=== PATIENT | male | born 2000 | race Caucasian/White ===

== ENCOUNTER 2024-02-13 10:17 | Emergency (ER) | payer MEDICAID, SELFPAY ==
--- NOTE | ~2024-02-13 | XR_ITS ---
EXAMINATION: XR HAND 3 OR MORE VIEWS RIGHT CLINICAL INFORMATION: Injury COMPARISON: None available at the time of this dictation. TECHNIQUE: Frontal lateral oblique views of the hand were obtained. 3 views FINDINGS: Mildly displaced boxer fracture of the neck of the fifth metacarpal. The fracture does not involve articular surface, anterior angulation of the fracture site. No other fractures. XR/XR hand RT min 3V IMPRESSION: Mildly displaced angulated boxer fracture of the neck of the fifth metacarpal. Electronically signed by: Israel Becker MD 02/13/2024 12:20 PM [facility]
[2024-02-13 10:22] VITALS: BP 140/84; PULSE 99; RESP 18; TEMP 36.3; O2SAT 97; BMI 20.4
--- NOTE | 2024-02-13 10:42 | ED.EXTPRO ---
HPI - Extremity Problem General Chief complaint: Extremity Injury, Upper Stated complaint: hand inj Time Seen by Provider: 02/13/24 10:30 Source: patient Mode of arrival: ambulatory Limitations: no limitations History of Present Illness ED Provider: Dejuan Carrero PA-C HPI Narrative: 23-year-old male presents to ED for right hand pain. Patient has slipped on ice and fell onto his right hand/fist. Patient denies hitting head or loss of consciousness. Denies any other complaints. Patient denies any chest pain, shortness of breath, abdominal pain, dizziness, nausea, vomiting, any other complaints. Related Data Previous Rx's ?Medication ?Instructions ?Recorded naproxen 500 mg tablet 500 mg PO BID PRN pain 7 days #14 02/13/24 tabs Allergies Allergy/AdvReac Type Severity Reaction Status Date / Time No Known Allergies Allergy Verified 02/13/24 10:24 Review of Systems Review of Systems: Right hand pain Yes all other systems are reviewed and are negative PMFSH Social History Social History Advance Directives: No Advance Directives Information Provided: Yes Physical Exam Vital Signs: Vital Signs: Last Vital Signs Temp 97.3 F 02/13/24 10:22 Pulse 99 02/13/24 10:22 Resp 18 02/13/24 10:22 BP 140/84 H 02/13/24 10:22 Pulse Ox 97 02/13/24 10:22 O2 Del Method Room Air 02/13/24 10:22 BMI result Body Mass Index 20.4 Const: General: cooperative, healthy appearing, comfortable, no acute distress, well developed, alert, awake and Physically active Orientation/consciousness: patient oriented x3 HEENT: Head: Yes normal to inspection, Yes No palpable skull fracture present, Yes normocephalic and Yes atraumatic Ears: hearing grossly normal bilaterally, external ears normal, TM's normal bilaterally, TM normal on the right, TM normal on the left, EAC's normal, mastoids normal and no periauricular adenopathy Throat: Yes posterior oropharynx normal, Yes tonsils normal and Yes uvula midline Eyes: General: appearance normal, both eyes and all related structures Neck: Neck: Yes normal visual inspection, Yes full ROM, Yes no lymphadenopathy, Yes no meningeal signs, Yes trachea midline, Yes supple, No anterior neck swelling and No tender Chest: Chest palpation & inspection: normal inspection of the chest and normal palpation of entire chest wall Resp: Effort & Inspection: normal respiratory effort and able to speak in complete sentences Auscultation: clear to auscultation bilaterally Cardio: Jugular venous distension: no JVD Heart sounds: S1 normal heart sound present and S2 normal heart sound present GI: Inspection: Yes normal to inspection Palpation (GI): Soft to palpation, not firm, nontender, no guarding and not rigid : General: Yes no CVA tenderness Back/Spine/Pelvis: Back: no CVA tenderness and No back tenderness Skin: General skin exam: no rashes or lesions noted, elasticity normal and turgor normal Neuro: General: patient oriented x3, gait normal, tone normal, moves all extremities, Normal light touch and pain sensation, no meningeal signs, no focal motor deficits, CN's II-XI intact bilaterally and normal sensation to monofilament Extrem: General: Yes normal to inspection, Yes full ROM and Yes capillary refill normal Hand/finger images: 1. Positive for tenderness on palpation with ecchymosis. Range of motion limited due to pain but intact. Rest of extremity normal. Motor/neuro/vascular exam intact. No erythema hotness or coldness Psych: Appearance: grossly normal, well kempt and not disheveled Medical Decision Making Medical Decision Making MDM Narrative: 23-year-old male presents to ED for right hand pain after slipping and falling onto right hand last night. Patient denies any head trauma. Upper extremity x-ray ordered. 12:26pm: X-ray shows boxer fracture. Patient placed in ulnar gutter splint. Patient informed to follow up with orthopedic surgeon. Patient explained worrisome signs and informed return to the ED immediately. Neuromotor vascular exam intact after splint patient. Not suspecting compartment syndrome, DVT, cellulitis, osteomyelitis, necrotizing fasciitis, or arterial occlusion. Differential Diagnosis Differential Diagnoses: The differential diagnosis associated with the presentation includes (Fracture, dislocate) Admission/Observation Consideration of admission/observation: Escalation of care including admission/observation considered Independent Interpretation I performed an independent interpretation of an: Plain X-Ray Radiology Impression Discussion of test interpretation with radiology: I have reviewed the radiologist's reading. Independent Historian Clinical information obtained from an independent historian. History obtained from or confirmed by: Other (Patient) External Record Review External record reviewed: Other (Prior visits) Discharge Plan Discharge Clinical Impression: Boxer's fracture Patient Disposition: Home, Self-Care Instructions: Hand Fracture (ED), Boxer Fracture (ED) Additional Instructions: You have a hand fracture. You will need follow-up with orthopedic surgeon. Return to the ED immediately for any bluish black discoloration, severe pain, skin feel tight, redness, chest pain, shortness of breath, numbness/tingling, fingers feel hot/cold, or any other concerning symptoms. FINDINGS: Mildly displaced boxer fracture of the neck of the fifth metacarpal. The fracture does not involve articular surface, anterior angulation of the fracture site. No other fractures. XR/XR hand RT min 3V IMPRESSION: Mildly displaced angulated boxer fracture of the neck of the fifth metacarpal. Electronically signed by: Israel Becker MD 02/13/2024 12:20 PM [facility] Prescriptions: New naproxen 500 mg tablet 500 mg PO BID PRN (Reason: pain) 7 Days Qty: 14 0RF Referrals: [facility] [place] Orthopedic Surgeons [Provider Group] (Positive for right hand fracture) Stand Alone Forms: Work/School Release Print Language: Guinean
--- NOTE | 2024-02-13 11:57 | MHC.EDTECH ---
this tech assisted DELLA harris with splinting pt, pt tolerated well, awaiting dc
[2024-02-13 12:51] VITALS: BP 140/84; PULSE 99; RESP 18; TEMP 36.3; O2SAT 97
== END 2024-02-13 12:57 | disposition home or self-care (01) ==
PROVIDERS: Emergency Provider Emergency Medicine Emergency Medical Services
DX: S62.91XA Unspecified fracture of right hand, initial encounter for closed fracture (principal); M79.641 Pain in right hand; W00.0XXA Fall on same level due to ice and snow, initial encounter; Y93.89 Activity, other specified; Y92.89 Other specified places as the place of occurrence of the external cause; Y99.8 Other external cause status
CPT/HCPCS: 73130; 99283

== ENCOUNTER 2024-02-15 09:34 | Outpatient (REF) | payer MEDICAID, SELFPAY ==
--- NOTE | ~2024-02-15 | XR_ITS ---
EXAMINATION: XR HAND RIGHT CLINICAL INFORMATION: Pain in right hand M79.641. COMPARISON: XR Right hand 02/13/2024 TECHNIQUE: PA, lateral, and oblique views of the right hand. FINDINGS: Redemonstrated is a fracture of the fifth metacarpal neck. Similar position and alignment. Mild callus formation. Mild soft tissue swelling. No new acute fracture seen. Bony alignment is anatomic. Joint spaces are maintained. XR/XR hand RT min 3V IMPRESSION: Healing changes of the fifth metacarpal fracture. Study is assigned/presented to me for interpretation on Mar 23, 2024 Electronically signed by: Barak Mittal MD 03/23/2024 09:16 AM [facility]
== END 2024-02-15 09:35 | disposition home or self-care (01) ==
LOC: HO.HOSX 09:34
PROVIDERS: Visit Provider Orthopaedic Surgery
DX: M79.641 Pain in right hand (principal); S62.336D Displaced fracture of neck of fifth metacarpal bone, right hand, subsequent encounter for fracture with routine healing
CPT/HCPCS: 26600; 73130; 99202

== ENCOUNTER 2024-02-15 09:34 | Outpatient (AMB) | payer MEDICAID, SELFPAY ==
--- NOTE | 2024-02-15 09:38 | MHC.OFFVIS ---
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 Patient slipped on ice and fell onto his right hand/fist. Seen in ED the following day where xrays were taken and hand was splinted. A fracture was confirm as per patient. Currently states he continues to have constant pain, swelling and some bruising. He is experiencing tingling in his small finger. Allergies No Known Allergies Allergy (Verified 02/15/24 09:47) HPI HPI FC-Right hand boxer fracture-DOI 02/11/24I: Details: Dg is a 23 year old right hand dominant man, here with his girlfriend, for a right hand fracture, S/P slip & fall on ice, DOI: 02/12/24. He was seen in the ED on 02/13/24 and placed in an ulnar gutter splint. He says he slipped and basically punched the concrete as he fell. He complains of pain, swelling, and occasional numbness in his small finger. He denies any evidence of infection and denies being placed on any Abx. he says he had mild scrapes to his knuckles after his fall. He says he doesn't want to take painkillers of any kind. 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 Review of Systems Const All systems reviewed & are unremarkable except as noted in HPI and below Physical Exam Vital Signs: BMI result Body Mass Index 21.5 Const General: cooperative, healthy appearing and no acute distress Orientation/consciousness: patient oriented x3 HEENT Head: Yes normocephalic and Yes atraumatic Eyes EOM: EOMs intact bilaterally Resp Effort & Inspection: normal respiratory effort and able to speak in complete sentences Cardio Jugular venous distension: no JVD Skin General skin exam: turgor normal Rashes: no rashes Neuro General: patient oriented x3 Extrem Other: Evaluation of Right Upper Extremity: The patient is alert, oriented, and in no acute distress Neuro: Median, Ulnar, Radial nerves motor and sensory intact and sensation is normal to the tips of all digits Vascular: Cap refill brisk ROM: He could extend all his digits, and could actively bring his ring & small fingers to ~50 degrees of flexion No rotational mal-alignment Skin: Mild abrasions over the dorsal aspect of his index, middle, and ring fingers, superficial No evidence of open fracture General: No Erythema or evidence of infection. Some mild swelling & ecchymosis to his hand Tender over the 5th metacarpal neck Radiographs: 3 views of the right hand were taken, viewed, and compared to images from 02/13/24 by me today in clinic. They show a fifth metacarpal neck fracture, with ~20 degrees ape dorsal angulation & mild translation radially. Psych Appearance: grossly normal Affect: normal affect Attitude: cooperative Office Procedures AMB Fracture Care Details: Fracture care 55285 Fracture Billing Code: Fracture Billing Code Assessment & Plan Assessment & Plan (1) Closed displaced fracture of neck of right fifth metacarpal bone: Code(s): S62.336A - Displaced fracture of neck of fifth metacarpal bone, right hand, initial encounter for closed fracture Category: Medical Plan Assessment & Plan: 1. 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 Anticipate transition to Herb-taping & splinting Please note that greater than 30 minutes was spent with this patient going over the history, evaluating the patient and radiographs, formulating possible treatment options, discussing them with the patient, and documenting the visit. Scribed for Tameka Cabello MD by aVnce Irvin, bilingual medical receptionist, on 02/15/24 at 9:55 AM, EST. Orders: Orders XR hand RT min 3V Today M79.641 - Pain in right hand Coding Level of Care Code New Pt Level 4 (45401) Diagnoses Closed displaced fracture of neck of right fifth metacarpal bone S62.336A CPT Codes Fracture Care - Fracture Billing Code: Fracture Billing Code ([id number])
[2024-02-15 09:47] VITALS: BMI 21.5
== END 2024-02-15 11:01 | disposition home or self-care (01) ==
PROVIDERS: Visit Provider Orthopaedic Surgery
DX: S62.336A Displaced fracture of neck of fifth metacarpal bone, right hand, initial encounter for closed fracture (principal)
CPT/HCPCS: 26600; 99203

== ENCOUNTER 2024-03-06 14:30 | Outpatient (REF) | payer MEDICAID, SELFPAY ==
--- NOTE | ~2024-03-06 | XR_ITS ---
EXAMINATION: XR HAND 3 OR MORE VIEWS RIGHT HISTORY: M79.641 - Pain in right hand COMPARISON: Comparison is made with the prior examination dated 02/15/2024. FINDINGS: Three views of the right hand are submitted. Osseous mineralization is normal. Again seen is a fracture of the 5th metacarpal neck. Position and alignment of the fracture fragments is unchanged. There is callus formation noted at the fracture site, consistent with healing. The fracture lines remain visible. The joint spaces are preserved. The soft tissues are unremarkable. XR/XR hand RT min 3V IMPRESSION: Healing fracture of the 5th metacarpal neck. Electronically signed by: Chris Cobb MD 03/14/2024 01:13 PM EST
== END 2024-03-06 14:31 | disposition home or self-care (01) ==
LOC: HO.HOSX 14:30
DX: M79.641 Pain in right hand (principal); S62.336D Displaced fracture of neck of fifth metacarpal bone, right hand, subsequent encounter for fracture with routine healing
CPT/HCPCS: 73130; 99212

== ENCOUNTER 2024-03-06 14:59 | Outpatient (AMB) | payer MEDICAID, SELFPAY ==
--- NOTE | 2024-03-06 15:03 | A.OFFVIS_ITS ---
Vital Signs 03/06/24 15:11 Height 5 ft 10 in Weight 150 lb BMI 21.5 Intake Visit Reasons: OV- Right hand boxer fracture-DOI 02/11/24I Intake Note: Dg is a 23 year old right hand dominant male who presents today for a follow up of his right hand 5th MC Fracture 02/11/24. Cast off Xrays updated. Patient reports that he is doing very well, he feels quite stiff in the 4th and 5th MC, with some mild numbness in the 5th finger. Allergies No Known Allergies Allergy (Verified 02/15/24 09:47) HPI HPI OV- Right hand boxer fracture-DOI 02/11/24I: Details: Dg is a 23 year old right hand dominant male who presents today for a follow up of his right hand 5th MC Fracture 02/11/24. Cast off Xrays updated. Patient reports that he is doing very well, he feels quite stiff in the 4th and 5th MC, with some mild numbness in the 5th finger. 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 Neuro: Normal sensation of the tips of all digits of the right hand at this time Patient reports diminished sensation over the dorsal part of the right MCP joint and distal 5th metacarpal Vascular: Cap refill brisk Pain: No tenderness to palpation of the level of the fracture of the right 5th metacarpal Patient does report discomfort with range of motion of the right hand, namely the 4th and 5th digits when attempting to make a closed fist, and particularly when he attempts to fully extend the small finger of the right hand ROM: Patient is able to make a closed fist with the right hand, but is unable to fully extend the right small finger due to stiffness Able to be passively extended with some discomfort Skin: 2 small, superficial lacerations noted on the dorsal aspect of the patient's right hand General: No ecchymosis, erythema, or evidence of infection. Psych: Appears grossly normal Affect normal Attitude cooperative Results Reviewed Results Reviewed: X-rays obtained in the office today and independently reviewed by me, Boris Esposito PA-C, demonstrate displaced fracture of the right 5th metacarpal neck with evidence of interval bony healing. Assessment & Plan Assessment & Plan (1) Closed displaced fracture of neck of right fifth metacarpal bone: Code(s): S62.336A - Displaced fracture of neck of fifth metacarpal bone, right hand, initial encounter for closed fracture Category: Medical Plan 1. Fracture of right 5th metacarpal neck Date of injury 02/12/2024 Patient appears to be recovering well from his injury Educated about the typical recovery course At this time, patient is informed that he can be removed from a cast, and we will be given a Velcro wrist splint to wear with daytime activities as well as andria tape to be worn at all times Patient is also referred to occupational therapy for range of motion and strengthening of the right hand in the setting of stiffness after his fracture Patient was amenable to this plan Patient is advised that if the numbness and tingling on the dorsal part of his right hand continues, we will potentially order an EMG and nerve conduction study to assess the health of the nerves of the right hand, but due to the fact that he was just in the cast this may resolve with some time Patient was amenable to this plan Patient will follow-up in 4 weeks with repeat x-rays for reassessment, sooner with any acute concerns Orders: Orders XR hand RT min 3V Today M79.641 - Pain in right hand OT Evaluation and Treatment Today S62.336A - Displaced fracture of neck of fifth metacarpal bone, right hand, initial encounter for closed fracture Coding Level of Care Code Global (87544) Diagnoses Closed displaced fracture of neck of right fifth metacarpal bone S62.336A
[2024-03-06 15:11] VITALS: BMI 21.5
== END 2024-03-06 15:53 | disposition home or self-care (01) ==
DX: S62.336A Displaced fracture of neck of fifth metacarpal bone, right hand, initial encounter for closed fracture (principal)
CPT/HCPCS: 99024

== ENCOUNTER → 2024-03-06 15:03 | Outpatient (BNV) | payer MEDICAID, SELFPAY | PROVIDERS: Visit Provider Radiology Diagnostic Radiology | DX: S62.336D Displaced fracture of neck of fifth metacarpal bone, right hand, subsequent encounter for fracture with routine healing (principal) | CPT/HCPCS: 73130 ==

== ENCOUNTER 2024-04-03 12:52 | Outpatient (REF) | payer MEDICAID, SELFPAY ==
--- OUTSIDE RECORDS SUMMARY | 2024-04-03 17:32 | XMS_ITS | Clinical Summary ---
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 Name Role Phone Unavailable Primary Care Provider Unavailabl e Social History Tobacco Use Types Packs/Day Years Used Date Smoking Tobacco: Never Assessed Sex and Gender Information Value Date Recorded Sex Assigned at Not on file Gender Identity Not on file Sexual Orientation Not on file Plan of Treatment Health Maintenance Due Date Last Done Comments HPV Vaccines (1 - Male 3-dos e series) 2013 DTaP,Tdap,and Td Vaccines (1 - Tdap) 2017 Hepatitis B Vaccines (1 of 3 - 19+ 3-dose series) 2017 Depression Screening 02/07/2022 HIV Screening 02/07/2022 Hepatitis C Screening 02/07/2022 Social Influencers of Health Screening 02/07/2022 COVID-19 Vaccine (1 - 2023-2 5 season) 2023 Influenza Vaccine (#1) 2023 HIB Vaccines Aged Out No longer eligi ble based on patient's age to complete this topic Hepatitis A Vaccines Aged Out No long er eligible based on patient's age to complete this topic IPV Vaccines Aged Out No longer eligi ble based on patient's age to complete this topic MMR Vaccines Aged Out No longer eligi ble based on patient's age to complete this topic Meningococcal ACWY Vaccine Aged Out N o longer eligible based on patient's age to complete this topic Pneumococcal Vaccine: Pediat rics (0 to 5 Years) and At-Risk Patients (6 to 64 Years) Aged Out No longer eligible b ased on patient's age to complete this topic RSV Immunization Patients Un jeffrey 20 months Aged Out No longer eligible b ased on patient's age to complete this topic Varicella Vaccines Aged Out No longer eligible based on patient's age to complete this topic
== END 2024-04-03 12:53 | disposition home or self-care (01) ==
LOC: HO.HOSX 12:52
DX: Z13.89 Encounter for screening for other disorder (principal)

== ENCOUNTER 2025-01-23 14:28 | Emergency (ER) | payer SELFPAY ==
[2025-01-23 14:40] VITALS: BP 135/85; PULSE 94; RESP 18; TEMP 36.6; O2SAT 98; BMI 21.5
--- NOTE | 2025-01-23 14:41 | ED.GENADULT ---
HPI - General Adult General Chief complaint: General Medical Stated complaint: Back Pain Time Seen by Provider: 01/23/25 16:50 Source: patient, RN notes reviewed and old records reviewed Mode of arrival: ambulatory Limitations: no limitations History of Present Illness ED Provider: Perri MCKEON narrative: Patient is a 24-year-old male presenting in the emergency department with complaint of pain, erythema and swelling to pilonidal area for the past week. Reports history of similar infections to this area in the past which have resolved on their own. He reports the area has spontaneously drained with infection in the past but denies any spontaneous drainage with the current infection. Denies any fevers, chills, body aches. MD complaint: pilonidal cyst Onset (ago): week(s) Related Data Previous Rx's ?Medication ?Instructions ?Recorded naproxen 500 mg tablet 500 mg PO BID PRN pain 7 days #14 02/13/24 tabs cephalexin 500 mg tablet 500 mg PO QID #28 tabs 01/23/25 Allergies Allergy/AdvReac Type Severity Reaction Status Date / Time No Known Allergies Allergy Verified 01/23/25 14:42 Review of Systems Review of Systems: as per hpi Yes all other systems are reviewed and are negative Constitutional: Constitutional: Reports as per HPI [facility] Social History Social History (Updated 02/15/24 @ 09:48 by DON Cooley) Advance Directives: No Advance Directives Information Provided: No Do you have a plan to hurt others: No Plan Current occupational status: employed 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 Blood pressure normal. Heart rate normal. Respiratory rate normal. Temperature normal. Oxygen saturation normal. Const General: cooperative, healthy appearing and no acute distress Orientation/consciousness: oriented to person, oriented to place, oriented to time and patient oriented x3 Limitations: no limitations HENMT Head: Yes normocephalic and Yes atraumatic Ears: external ears normal General nose exam: Normal external nose present Face and sinus: Yes face symmetric Mouth: oropharynx normal and moist mucous membranes Throat: Yes uvula midline Eyes Pupils: Equal, round and reactive pupils present Neck Neck: Yes normal visual inspection and Yes supple Resp Effort & Inspection: normal respiratory effort and able to speak in complete sentences Auscultation: clear to auscultation bilaterally Cardio Rate: regular rate Rhythm: regular rhythm Heart sounds: S1 normal heart sound present and S2 normal heart sound present GI Palpation (GI): Soft to palpation and nontender Auscultation: normoactive bowel sounds General: Yes no CVA tenderness Back/Spine/Pelvis Back: no CVA tenderness Skin General skin exam: elasticity normal and turgor normal Full body images:  1. 3cm of erythematous induration to superior aspect of cleft without induration or drainage Neuro General: oriented to person, oriented to place, oriented to time, patient oriented x3, moves all extremities, no focal motor deficits and CN's II-XI intact bilaterally Cranial nerves: Yes Equal, round and reactive pupils present Cognition (Neuro): normal cognition Extrem General: Yes full ROM, Yes no pedal edema and Yes no calf tenderness Psych Mental Status: mental status grossly normal Affect: normal affect Thought process: Normal thought process present Course Course Course Narrative: This is an RME: Additional HPI, ROS, PE not included below will be deferred to primary provider. RME assessment and note performed by: Shahida Salas PA-C This is a [id number]-male who presents to the ER with complaints of lump on lower back x 1 week. Hx of similar but states that they have resolved on their own. No fevers, chills, body aches. No drainage from the area. Plan: ?I&D Medical Decision Making Medical Decision Making MDM Narrative: Patient is a 24-year-old male presenting in the emergency department with complaint of pain, erythema and swelling to pilonidal area for the past week. On exam patient is awake, A+Ox3, VS WNL, afebrile, normal neurological exam without focal deficits, physical exam findings as above. Given reported symptoms and physical exam findings, initial differential includes but is not limited to infected pilonidal cyst versus abscess, cellulitis. No fluctuance noted, do not feel I&D is indicated at this time. Will discharge patient on keflex and advised Sitz baths. Will also refer to general surgery as patient reports recurrent infections. Strict return precautions discussed. Patient verbalized understanding of and agreement with plan. Differential Diagnosis Differential Diagnoses: The differential diagnosis associated with the presentation includes as per mdm Admission/Observation Consideration of admission/observation: Escalation of care including admission/observation considered Patient would have been admitted to the hospital and transferred to appropriate facility had their clinical presentation warranted hospital admission. External Record Review External record reviewed: Inpatient record, Office record and Outpatient record Prescription Management I considered prescription management with: Antibiotic Discharge Plan Discharge Clinical Impression: Infected pilonidal cyst Patient Disposition: Home, Self-Care Instructions: Pilonidal Cyst (ED), Sitz Bath (DC), Pilonidal Cyst Excision (DC) Additional Instructions: You were evaluated in the ER for an infection of a pilonidal cyst. Please keep the area surrounding the infection clean and dry. You were given a prescription for antibiotics, please take the antibiotics as directed for the full course of the medication. You should perform a skin check of the area daily. If the abscess progresses you may have to have the abscess incised and drained. You can use Tylenol or ibuprofen per package directions as needed for pain. If necessary, you can alternate these medications so that you take one medication every 3 hours. For instance, at noon take ibuprofen, then at 3:00 p.m. take Tylenol, then at 6:00 p.m. take ibuprofen. Please schedule an appointment with your primary care physician as soon as possible for follow-up. Return to the emergency department if you experience fevers greater than 100.4? F, increased in area of redness or swelling, increasing amount of discharge from the area, increased tenderness around the area, or any other concerning symptoms. Prescriptions: New cephalexin 500 mg tablet 500 mg PO QID Qty: 28 0RF No Action naproxen 500 mg tablet 500 mg PO BID PRN (Reason: pain) 7 Days Qty: 14 0RF Stand Alone Forms: Work/School Release Print Language: Latvian
[2025-01-23 17:14] VITALS: BP 135/85; PULSE 94; RESP 18; TEMP 36.6; O2SAT 98
== END 2025-01-23 17:16 | disposition home or self-care (01) ==
PROVIDERS: Emergency Provider Emergency Medicine
DX: L05.91 Pilonidal cyst without abscess (principal)
CPT/HCPCS: 99283